=== PATIENT | female | born 1980 | race Caucasian/White ===

== ENCOUNTER 2020-07-01 16:17 | Emergency (ER) | payer MEDICAID ==
[~2020-07-01] VITALS: Ht 177.8 cm; Wt 84.2 kg
[2020-07-01 16:40] VITALS: BP 154/109
[2020-07-01] MEDS ORDERED: PENI250T2 PO (17:37)
[2020-07-01] MEDS ORDERED: LIDO20SO16 PO (17:38)
== END 2020-07-01 17:51 | disposition home or self-care (01) ==
LOC: ER 16:18
DX: K04.7 Periapical abscess without sinus (principal); Z79.2 Long term (current) use of antibiotics; Z79.899 Other long term (current) drug therapy
CPT/HCPCS: 99283